=== PATIENT | female | born 1965 | race Caucasian/White ===

== ENCOUNTER → 2016-11-30 | Outpatient (CLI) | payer BC, OTHER ==
[~2016-11-30] MED LIST: ADVIN25/60 INH; HYDR-3785 PO; HYDR-4079 PO; LEVO25TA5 PO; LORA0.5T12 PO; [UNRECOGNIZED DRUG - CODE] PO
== END | disposition home or self-care (01) ==
LOC: C.LABSPEC 10:34
PROVIDERS: ATTEND Family Medicine
DX: N39.0 Urinary tract infection, site not specified (principal)